=== PATIENT | male | born 1940 | race Caucasian/White ===

== ENCOUNTER → 2022-01-08 | Outpatient (CLI) | payer MEDICARE ==
[~2022-01-08] MED LIST: CIPROFLOXACIN500 MG PO; FLOMAX0.4 MG PO; PYRIDIUM200 MG PO; ULTRAM50 MG PO
== END | disposition home or self-care (01) ==
LOC: RAD 10:59
PROVIDERS: ATTEND Chiropractor
DX: M47.817 Spondylosis without myelopathy or radiculopathy, lumbosacral region (principal); M25.78 Osteophyte, vertebrae; I70.201 Unspecified atherosclerosis of native arteries of extremities, right leg

== ENCOUNTER 2025-01-26 11:33 | Inpatient (IN) | payer MEDICARE ==
[~2025-01-26] VITALS: Ht 177.8 cm; Wt 66.8 kg
[~2025-01-26 11:33] MED LIST changes: +CARVEDILOL6.25 MG PO; +DONEPEZIL HCL10 MG PO; +ELIQUIS5 M1 PO; +HYDROXYZINE PAM50 MG PO; +MEMANTINE HCL10 MG PO; +MIRTAZAPINE15 M2 PO; +QUETIAPINE FUMA50 M1 PO; +SIMVASTATIN20 MG PO
[2025-01-26] MEDS ORDERED: CIPRO500 MG PO (15:28)
[2025-01-26] MEDS ORDERED: hydrOXYzine hydrochloride 50 MG/ML VIAL IM PRN (16:25)
[2025-01-26] MEDS ORDERED: LORazepam 1 MG TAB PO PRN (16:25)
[2025-01-26] MEDS ORDERED: MG-AL HYDROXIDE/SIMETICONE 30 ML UDC PO PRN (16:30)
[2025-01-26] MEDS ORDERED: ACETAMINOPHEN 325 MG TAB PO PRN (16:30)
[2025-01-26] MEDS ORDERED: Menthol/Zinc Oxide 4 GM THIN T PRN (16:35)
[2025-01-26 20:00] VITALS: BP 133/93
[2025-01-26] MEDS ORDERED: risperiDONE 0.5 MG TAB PO SCH (21:00)
[2025-01-26] MEDS ORDERED: Mirtazapine 15 MG TAB PO SCH (21:00)
[2025-01-27 06:18] LABS: MEAN CELL VOLUME 99.8 fl (80.0-94.0); MEAN CORPUSCULAR HGB 33.5 pg (27.0-31.0); MEAN PLATELET VOLUME 10.1 fl (9.6-12.3); NUCLEATED RED BLOOD CELL 0.0 % (0.0-0.0); NUCLEATED RED BLOOD CELL 0.0 10*3/uL (0.0-0.0); PLATELET COUNT AUTOMATED 81 10*3/uL (130-400); RED CELL DISTRI WIDTH 13.3 % (0-14.5)
[2025-01-27 06:41] LABS: BUN 21 mg/dl (9-23); LDL CHOLESTEROL 63 mg/dL (9-159); SGPT/ALT 24 U/L (5-49)
[2025-01-27 06:43] LABS: VALPROIC ACID (DEPAKENE) < 3.0 ug/ml (50-100)
[2025-01-27 07:22] LABS: MANUAL DIFF REFLEX YES
[2025-01-27 07:25] LABS: PLATELET SUFFICIENCY LOW (NORMAL)
[2025-01-27 07:29] LABS: VITAMIN D, 25-HYDROXY 33.4 ng/mL (30-100)
[2025-01-27 08:47] VITALS: BP 104/81
[2025-01-27] MEDS ORDERED: CARVEDILOL 6.25 MG TAB PO SCH (09:00)
[2025-01-27] MEDS ORDERED: Rivastigmine Tartrate 4.6 MG/24 HR PATCH T SCH (09:00)
[2025-01-27] MEDS ORDERED: APIXABAN 5 MG TAB PO SCH (09:00)
[2025-01-27] MEDS ORDERED: Sulfamethoxazole/Trimethopri 1 TAB TAB PO SCH (09:00)
[2025-01-27] MEDS ORDERED: CYANOCOBALAMIN 1,000 MCG/ML VIAL IM SCH (12:50)
[2025-01-27 19:35] VITALS: BP 133/83
[2025-01-27] MEDS ORDERED: SIMVASTATIN 20 MG TAB PO SCH (22:00)
[2025-01-28] MEDS ORDERED: Cholecalciferol 2,000 UNIT TABLET (50 MCG) PO SCH (09:00)
[2025-01-28] MEDS ORDERED: Mirtazapine 15 MG TAB PO SCH (21:00)
[2025-01-29 06:50] LABS: SGPT/ALT 68.0 U/L (5-49)
[2025-01-29 06:57] LABS: BUN 61.0 mg/dl (9-23)
[2025-01-29 07:01] LABS: MEAN CELL VOLUME 97.9 fl (80.0-94.0); MEAN CORPUSCULAR HGB 32.9 pg (27.0-31.0); NUCLEATED RED BLOOD CELL 0.0 % (0.0-0.0); NUCLEATED RED BLOOD CELL 0.0 10*3/uL (0.0-0.0); RED CELL DISTRI WIDTH 13.3 % (0-14.5)
[2025-01-29 07:03] LABS: MANUAL DIFF REFLEX YES
[2025-01-29 07:08] LABS: PLATELET COUNT AUTOMATED 22 10*3/uL (130-400); PLATELET SUFFICIENCY LOW (NORMAL)
[2025-01-29 08:00] VITALS: BP 138/75
[2025-01-29] MEDS ORDERED: MUPIROCIN 15 GM TUBE T SCH (10:00)
[2025-01-29] MEDS ORDERED: VITAMIN D350 MCG PO (14:39)
== END 2025-01-29 19:16 | DRG 883 ==
LOC: 3N 11:33
PROVIDERS: Counselor Professional; ADMIT Psychiatry & Neurology Psychiatry; ATTEND Psychiatry & Neurology Psychiatry
PROC: GZHZZZZ Group Psychotherapy (ICD-10-PCS; principal; 2025-01-27)
DX: F63.81 Intermittent explosive disorder (principal); G93.41 Metabolic encephalopathy; N39.0 Urinary tract infection, site not specified; G30.9 Alzheimer's disease, unspecified; F02.80 Dementia in other diseases classified elsewhere, unspecified severity, without behavioral disturbance, psychotic disturbance, mood disturbance, and anxiety; D72.829 Elevated white blood cell count, unspecified; D75.89 Other specified diseases of blood and blood-forming organs; D69.6 Thrombocytopenia, unspecified; E87.8 Other disorders of electrolyte and fluid balance, not elsewhere classified; R73.9 Hyperglycemia, unspecified; N06.9 Isolated proteinuria with unspecified morphologic lesion; E78.2 Mixed hyperlipidemia; F41.1 Generalized anxiety disorder; Z66 Do not resuscitate; Z51.5 Encounter for palliative care; Z81.8 Family history of other mental and behavioral disorders; Z85.46 Personal history of malignant neoplasm of prostate